=== PATIENT | female | born 1985 | race Caucasian/White ===

== ENCOUNTER 2017-04-08 13:44 | Emergency (ER) | payer BC ==
[2017-04-08 13:55] VITALS: BP 150/90
[2017-04-08] MEDS ORDERED: KETOROLAC TROMETHAMINE 60 MG/2 ML VIAL IM ONE ×2 (14:05→14:09)
--- NOTE | 2017-04-08 14:07 | ERNOTE ---
Lower Extremity HPI - General Lower Extremities Pain: foot: left, ankle: left Time Seen by Provider: 04/08/17 14:01 Source: patient, family Exam Limitations: no limitations - Immun/Allergies/Home Medications Immunizations: IMMUNIZATION HX Immunizations Up to Date Yes History of Influenza Vaccine No Hx Pneumococcal Vaccination No Allergies/Adverse Reactions: Allergies Allergy/AdvReac Type Severity Reaction Status Date / Time sumatriptan [From Imitrex] Allergy Severe throat Verified 04/08/17 13:54 swelling sumatriptan succinate Allergy Severe throat Verified 04/08/17 13:54 [From Imitrex] swelling naproxen Allergy Intermediate Hives Verified 04/08/17 13:54 Home Medications: HOME MEDICATIONS NK [No Home Medication] 04/08/17 [Last Taken Unknown] - History of Present Illness Narrative: About a week ago patient stepped off a shelf and stepped on a ledge twisting her left ankle. She has been walking on it but has had significant pain, no other injuries, took ibuprofen yesterday Occurred: last week Method of Injury: Reports: twisted Reason for Fall: Reports: other Loss of Consciousness: Reports: no loss of consciousness Modifying Factors - (Improves): Reports: immobilization, rest Modifying Factors - (Worsens): Reports: movement Associated Symptoms: Denies: unable to bear weight, snapping, popping sensation , dizzy/light headedness, weakness, bowel/bladder problems Other Injuries: Reports: none Subsequent Symptoms: Denies: sensory loss, numbness Prior Treament: Denies: recently seen Review of Systems - Review of Systems Constitutional: Absent: recent illness, fever ENT: Absent: nose congestion, sore throat Respiratory: Absent: shortness of breath, cough Cardiology: Absent: chest pain Gastrointestinal/Abdominal: Absent: nausea, abdominal pain Genitourinary: Present: no symptoms reported Musculoskeletal: Present: See HPI Skin: Absent: rash Neurological: Absent: weakness, numbness - Patient's Past Medical History Patient History - Medical: No pertinent hx Patient History - Cardiac/Respiratory: No pertinent hx Patient History - Cancer: No Hx of Cancer Patient History - Surgical Procedures: , Hysterectomy Patient History - Other: None - Social History Living Situations: home Abuse History: No History of abuse Psych History: No pertinent hx Smoking Status: Never smoker Alcohol Use: occasionally Drug Use: none - Immunizations Immunizations Up to Date: Yes Hx Pneumococcal Vaccination: No History of Influenza Vaccine: No Physical Exam - Physical Exam General Appearance: Present: wd/wn, alert, no apparent distress Head Exam: Present: normal inspection Respiratory: Present: no respiratory distress, normal breath sounds, no accessory muscle use, lungs clear Cardiovascular/Chest: Present: regular rate, rhythm, no murmur Extremity Exam: Present: normal except - - left ankle tender over lateral malleolus especially posterior, swelling, no echymosis, no deformity; also small area of tenderness and echymosis over 2nd and 3rd metatarsal head Neurological Exam: Present: alert, oriented, normal mood/affect, no motor/ sensory deficits Skin Exam: Present: normal color, warm/dry ED Progress - Vital Signs Patient's Vital Signs:: I have reviewed the patient's vital signs. Vital Signs: Vital Signs 04/08/17 13:49 Temperature 36.8 C Pulse Rate 68 Respiratory 16 Rate Blood Pressure 150/90 O2 Sat by Pulse 99 Oximetry - X-Ray X-Ray #1 X-Ray: ankle - no fracture Interpretation: Reviewed by me X-Ray #2 X-Ray: foot Interpretation: Reviewed by me - no fracture - Progress/Reassessment Chief Complaint: Ankle Injury/ Pain Progress Note-Subjective: 04/08/17 14:52 discussed xray results with patient, minimal relieve after toradol Departure Clinical Impression: Left ankle sprain Qualifiers: Encounter type: initial encounter Involved ligament of ankle: unspecified ligament Qualified Code(s): S93.402A - Sprain of unspecified ligament of left ankle, initial encounter - Departure Disposition: Home self-care Condition: Good Instructions: Ankle Sprain, [id number] Referrals: Sara Rueda MD [Primary Care Provider] -
== END 2017-04-08 15:00 | disposition home or self-care (01) ==
LOC: ER 13:44
PROC: 2W3RX1Z Immobilization of Left Lower Leg using Splint (ICD-10-PCS; principal; 2017-04-08)
DX: S93.402A Sprain of unspecified ligament of left ankle, initial encounter (principal); X58.XXXA Exposure to other specified factors, initial encounter; Y93.89 Activity, other specified; Y92.9 Unspecified place or not applicable; Y99.9 Unspecified external cause status